=== PATIENT | female | born 1945 | race Caucasian/White ===

== ENCOUNTER 2018-09-24 12:15 | Inpatient (IN) | payer MEDICARE, SELFPAY ==
[2018-09-10 09:59] VITALS: BMI 28.5
[2018-09-24] VITALS (16 sets, daily range): BP systolic 91–147; BP diastolic 39–78; PULSE 45–62; RESP 10–18; TEMP 35.6–36.6; O2SAT 92–96; BMI 28.5
[2018-09-24] MEDS: LACTATED RINGERS 1,000 ML 42 ML IV (13:13)
[2018-09-24] MEDS: PREGABALIN 75 MG CAPSULE PO (13:16)
[2018-09-24] MEDS: ACETAMINOPHEN 325 MG TABLET 975 MG PO (13:16)
--- NOTE | 2018-09-24 13:17 | PM.PREOP ---
Pre-operative Note Interval Note History & Physical reviewed/Exam performed by Physician: Yes Changes to H&P: No
[2018-09-24] MEDS: CEFAZOLIN 1 GM VIAL IV (13:35)
--- NOTE | 2018-09-24 14:16 | SUR.OPER ---
Left Lateral on padded OR bed. Gel axillary roll. Arms secured on padded armboard with pillow supporting top arm. Padded hip positioner braces x4 - anterior and posterior chest and pelvis. Additional gel pad used anterior pelvis. Gel pad under bottom leg from knee to foot and secured with tape over sheet.
--- NOTE | 2018-09-24 14:19 | SUR.OPER ---
Raised, reddened, nickel sized bump on right lower buttock noted during positioning. Pamela Moore PA-C and Dr. Ragini anders.
[2018-09-24] MEDS: BUPIVACAINE 0.25% W/ EPI VIAL 50 ML INJ (14:25)
[2018-09-24] MEDS: TRANEXAMIC ACID 1,000 MG VIAL 1000 MG INJ ×2 (14:27→14:52)
--- NOTE | 2018-09-24 14:30 | DI.RAD.S_ITS ---
PROCEDURE: XR PELVIS 1-2V INDICATIONS: prosthesis placement TECHNIQUE: 1 view of the lower pelvis acquired. COMPARISON: None. FINDINGS: Bones: Patient is status post right hip arthroplasty, with hardware components in expected positions. The hip joint appears congruent. The visualized bony structures appear intact. Soft tissues: Overlying postoperative changes are noted. No suspicious soft tissue densities. IMPRESSION: Post right total hip arthroplasty with anatomic right hip alignment. Dictated by: Jame Garcia M.D. on 09/24/2018 at 16:18 Approved by: Jame Garcia M.D. on 09/24/2018 at 16:18
--- NOTE | 2018-09-24 15:24 | SUR.PHASEI ---
Sat probe to right hand is about 2% higher than to left. Not using CPAP. No shivering seen.
--- NOTE | 2018-09-24 15:25 | PM.OP.1 ---
Operative Date/Time/Diagnoses Date of procedure: 09/24/18 Time of procedure: 15:25 Pre-op diagnosis: Right hip degenerative joint disease Post-op diagnosis: same Procedure & Clinicians Procedure: Right total hip arthroplasty (CPT code 37138 with assistant bookkeeper) Same procedure as scheduled: Yes Indications: Patient is an 72-year-old female with severe right hip DJD. The patient has pain with activities and at rest, limited ambulation and activity tolerance, difficulties with ADLs, and failure of conservative treatment. We have discussed the nature of condition, treatment options, risks and benefits, and patient elects to proceed with total hip arthroplasty and gives informed consent. Surgeon: Amanuel Eid Traffic Maintenance Supervisor: James Tesfaye Anesthesia Type: General and Spinal Operative Notes Closure Type: primary Specimen(s): none sent Prosthetic devices, grafts, tissues, transplants, or devices: Acetabulum: Mulligan [employer]hew R3 acetabular component size 50 mm Femoral component: Mulligan [employer] Nephew Anthology stem size 6 with standard offset Femoral head: 32 mm + 0 Oxinium Estimated Blood Loss (mL): 100 Blood products transfused: none Procedure in detail: After satisfaction induction of anesthetic, and administration of IV antibiotics, the patient was positioned in the lateral decubitus position with all bony prominences well padded and pelvic position secured using a hip pnp positioning device. Right hip and lower extremity prepped and draped in the usual sterile fashion, 1st dose of intravenous tranexamic acid was administered, then a longitudinal incision was created centered over the greater trochanter and carried sharply through the skin and subcutaneous tissues down to the fascia jose luis which was divided longitudinally and retracted with a Charnley retractor. External rotators visualize, cut, tagged, and retracted posteriorly, then the capsule was cut in a T-type fashion with the corners tagged and retracted. Hip was dislocated and femoral neck cut made according to preoperative templating. Acetabular retractors then placed, and the acetabular labrum and osteophytes were excised. The acetabulum was then sequentially reamed to 49 mm with an excellent circumferential ream and fit with the trial. The trial component was removed and a permanent size 50 mm Mulligan [employer] Nephew R3 acetabular component was selected, positioned, and impacted with satisfactory position and fixation achieved. Permanent liner was then inserted with the elevated lip directed posteriorly. Soft tissue then removed off the lateral femoral neck in the lateral neck was entered using a box osteotome. T-handled reamers placed down the canal followed by sequential broaching to 6 with the final broach left in place for trial reduction which demonstrated excellent leg length, range of motion, and stability characteristics with a 32 mm +0 trial ball. The trial and broach were removed, and a permanent size 6 Mulligan [employer] Nephew Anthology stem was selected and inserted with excellent position and fixation achieved. Another trial reduction yielded the above characteristics so the trial ball was exchanged for a permanent 32 mm +0 Oxinium ball. The hip was irrigated and reduced and excellent leg length range of motion and stability characteristics were achieved and maintained. Periarticular tissues were infiltrated with Marcaine. The hip was copiously irrigated, and the capsule repaired with #2 Ethibond, and the piriformis was repaired back to the greater trochanter with the same. Fascia jose luis closed with interrupted #1 Ethibond sutures, and the subcutaneous tissues were closed in 2 layers of 0 Vicryl and 2 0 Vicryl. Skin was closed with rakel and sterile dressings applied. Second dose of tranexamic acid was administered intravenously, and the anesthetic was terminated. Complications: none Condition: stable Disposition: PACU Plan for aftercare: Patient will be admitted to the acute care storm, and anticipate discharge on postop day 1 or 2 with follow-up in office in 10-14 days. Outpatient physical therapy will be arranged and patient will continue to observe posterior hip precautions. Patient will continue use of postoperative Lovenox for 10 days postop.
--- NOTE | 2018-09-24 15:28 | P.OP_ITS ---
Operative Date/Time/Diagnoses Date of procedure: 09/24/18 Time of procedure: 15:25 Pre-op diagnosis: Right hip degenerative joint disease Post-op diagnosis: same Procedure & Clinicians Procedure: Right total hip arthroplasty (CPT code 58367 with assistant paralegal) Same procedure as scheduled: Yes Indications: Patient is an 72-year-old female with severe right hip DJD. The patient has pain with activities and at rest, limited ambulation and activity tolerance, difficulties with ADLs, and failure of conservative treatment. We have discussed the nature of condition, treatment options, risks and benefits, and patient elects to proceed with total hip arthroplasty and gives informed consent. Surgeon: Amanuel Eid Emergency Dispatch Operator: James Tesfaye Anesthesia Type: General and Spinal Operative Notes Closure Type: primary Specimen(s): none sent Prosthetic devices, grafts, tissues, transplants, or devices: Acetabulum: Mulligan [employer] Nephew R3 acetabular component size 50 mm Femoral component: Mulligan [employer] Nephew Anthology stem size 6 with standard offset Femoral head: 32 mm + 0 Oxinium Estimated Blood Loss (mL): 100 Blood products transfused: none Procedure in detail: After satisfaction induction of anesthetic, and administration of IV antibiotics, the patient was positioned in the lateral decubitus position with all bony prominences well padded and pelvic position secured using a hip inbound call center representative positioning device. Right hip and lower extremity prepped and draped in the usual sterile fashion, 1st dose of intravenous tranexamic acid was administered, then a longitudinal incision was created centered over the greater trochanter and carried sharply through the skin and subcutaneous tissues down to the fascia jose luis which was divided longitudinally and retracted with a Charnley retractor. External rotators visualize, cut, tagged, and retracted posteriorly, then the capsule was cut in a T-type fashion with the corners tagged and retracted. Hip was dislocated and femoral neck cut made according to preoperative templating. Acetabular retractors then placed, a nd the acetabular labrum and osteophytes were excised. The acetabulum was then sequentially reamed to 49 mm with an excellent circumferential ream and fit with the trial. The trial component was removed and a permanent size 50 mm Mulligan and Nephew R3 acetabular component was selected, positioned, and impacted with satisfactory position and fixation achieved. Permanent liner was then inserted with the elevated lip directed posteriorly. Soft tissue then removed off the lateral femoral neck in the lateral neck was entered using a box osteotome. T- handled reamers placed down the canal followed by sequential broaching to 6 with the final broach left in place for trial reduction which demonstrated excellent leg length, range of motion, and stability characteristics with a 32 mm +0 trial ball. The trial and broach were removed, and a permanent size 6 Mulligan [employer] Nephew Anthology stem was selected and inserted with excellent position and fixation achieved. Another trial reduction yielded the above characteristics so the trial ball was exchanged for a permanent 32 mm +0 Oxinium ball. The hip was irrigated and reduced and excellent leg length range of motion and stability characteristics were achieved and maintained. Periarticular tissues were infiltrated with Marcaine. The hip was copiously irrigated, and the capsule repaired with #2 Ethibond, and the piriformis was repaired back to the greater trochanter with the same. Fascia jose luis closed with interrupted #1 Ethibond sutures, and the subcutaneous tissues were closed in 2 layers of 0 Vicryl and 2 0 Vicryl. Skin was closed with rakel and sterile dressings applied. Second dose of tranexamic acid was administered intravenously, and the anesthetic was terminated. Complications: none Condition: stable Disposition: PACU Plan for aftercare: Patient will be admitted to the acute care storm, and anticipate discharge on postop day 1 or 2 with follow-up in office in 10-14 days. Outpatient physical therapy will be arranged and patient will continue to observe posterior hip precautions. Patient will continue use of postoperative Lovenox for 10 days postop.
--- NOTE | 2018-09-24 17:35 | PT.IPTN ---
Current Diagnoses Unilateral primary osteoarthritis, right hip (09/24/18) Other cervical disc degeneration, unspecified cervical region (09/24/18) Radiculopathy, cervical region (09/24/18) Surgery Performed Operation Date: 09/24/18 14:30 Actual Procedures p Total Hip Arthroplasty(Right) - Amanuel Eid MD Physical Therapy Treatment Note M3 PT-IP Subjective Start: 09/24/18 17:33 Freq: NEEDED Status: Active Protocol: Document 09/24/18 17:33 (Rec: 09/24/18 17:35 [id number]) Subjective Physical Therapy Visit Type Type Administrative Note Visit Start Time 17:30 Notes Pt states she is not ready for PT due to numbness on BLE. Will attempt PT eval again tomorrow am.
[2018-09-24] MEDS: LACTATED RINGERS 1,000 ML 125 ML IV (18:20)
[2018-09-24] MEDS: NICOTINE 21 MG PATCH TOP (18:20)
[2018-09-24] MEDS: HYDROMORPHONE 2 MG TABLET PO ×2 (19:25→22:15)
[2018-09-24] MEDS: hydrOXYzine pamoate 25 MG CAPSULE PO (19:59)
[2018-09-24] MEDS: HYDROCODONE/ACET 5/325 TABLET 1 TAB PO (19:59)
[2018-09-24] MEDS: HYDROMORPHONE 0.5 MG INJ IV (21:15)
[2018-09-24] MEDS: clonazePAM 0.5 MG TABLET 1 MG PO (22:15)
[2018-09-24] MEDS: METFORMIN XR 500 MG TABLET PO (22:19)
[2018-09-24] MEDS: LOSARTAN 50 MG TABLET PO (22:20)
[2018-09-24] MEDS: ROSUVASTATIN 10 MG TABLET 40 MG PO (22:20)
[2018-09-24] MEDS: OXYBUTYNIN 5 MG ER TAB 10 MG PO (22:21)
[2018-09-24] MEDS: ATENOLOL 50 MG TABLET PO (22:21)
[2018-09-24] MEDS: ACETAMINOPHEN 325 MG TABLET 650 MG PO (22:22)
[2018-09-24] MEDS: OLANZapine 2.5 MG TABLET PO (22:22)
[2018-09-24] MEDS: CEFAZOLIN 2 GM/100 ML FROZ.PIGGY IV (22:26)
[2018-09-25] VITALS (16 sets, daily range): BP systolic 124–145; BP diastolic 57–72; PULSE 55–65; RESP 16–20; TEMP 36.5–37.1; O2SAT 86–96
[2018-09-25] MEDS: HYDROMORPHONE 0.5 MG INJ IV ×4 (00:25→23:57)
[2018-09-25] MEDS: LACTATED RINGERS 1,000 ML 125 ML IV (02:13)
[2018-09-25] MEDS: HYDROMORPHONE 2 MG TABLET PO ×4 (02:13→17:32)
--- NOTE | 2018-09-25 03:12 | PC.NURSE ---
Visual Communications Instructor Note: 0005: Awake, resting in bed. Pt denies numbness to lower extremities. Vital signs stable. IV in place in rt wrist, with LR infusing at 125cc/hr. Assisted to turn and reposition. Pt states she needs to urinate and frequently has stress incontinence. Pt voided in brief: ronaldo care given and clean brief put on. SCDs on. Fresh ice bag to rt hip. Bulky dressing to rt hip is cdi. 0025: Pt states her pain level is 8/10. Medicated with Dilaudid 0.5mg IV.
[2018-09-25 05:56] LABS: Hematocrit 38.4 % (36-46); Hemoglobin 13.2 g/dL (12.0-16.0)
[2018-09-25] MEDS: CEFAZOLIN 2 GM/100 ML FROZ.PIGGY IV (06:49)
[2018-09-25] MEDS: ACETAMINOPHEN 325 MG TABLET 650 MG PO ×3 (08:03→20:45)
[2018-09-25] MEDS: AMIODARONE 100 MG TABLET PO (08:07)
[2018-09-25] MEDS: ATENOLOL 50 MG TABLET PO ×2 (08:09→20:46)
[2018-09-25] MEDS: METFORMIN XR 500 MG TABLET PO ×2 (08:12→20:47)
[2018-09-25] MEDS: OXYBUTYNIN 5 MG ER TAB PO (08:12)
[2018-09-25] MEDS: LOSARTAN 50 MG TABLET PO ×2 (08:12→20:47)
[2018-09-25] MEDS: NICOTINE 21 MG PATCH TOP (08:12)
[2018-09-25] MEDS: SERTRALINE 50 MG TABLET PO (08:13)
--- NOTE | 2018-09-25 09:00 | PM.PNPO.1 ---
Subjective Date Patient Seen: 09/25/18 Interval history: Patient is seen bedside status post right NICK on 09/24/[address] Eid. Patient is in pain at this time, but denies any CP, SOB, cough, calf pain, and numbness/tingling. She does not have anyone at home to stay with her, so would like to go to a rehab facility upon discharge. Based on her Swift[place] score of 17, I believe this is reasonable. Exam Vital Signs (past 8 hours): - 09/25/18 01:23 09/25/18 04:29 Temperature 98.1 F 97.7 F Pulse Rate 65 62 Respiratory Rate 19 16 Blood Pressure 140/72 145/69 H Pulse Oximetry 93 93 Oxygen Delivery Method Nasal Cannula Oxygen Flow Rate 2 Narrative Exam Narrative: Well-developed well-nourished mild distress alert and oriented x3. Dressing on right hip is clean dry and intact with no signs of drainage. Full range of motion of bilateral ankles 2+ pulses and cap refill less than 2 sec. Calves are soft and compressible. Objective Labs Result Diagrams: 09/25/18 05:08 Labs: Laboratory Results - last 24 hr 09/25/18 05:08 Hgb 13.2 Hct 38.4 Assessment & Plan Post-op Postoperative Procedures Operation Date: 09/24/18 14:30 Actual Procedures Side Surgeon p Total Hip Arthroplasty Right Amanuel Eid MD 1. POD #1 s/p above procedure-PT, lovenox for DVT prophylaxis, and pain control. Discharge to SNF when medically ready. Quality VTE Deep Vein Thrombosis/Pulmonary Embolism Present on Admission: No
--- NOTE | 2018-09-25 09:13 | PC.NURSE ---
Patient was incontinent, changed patient and sheets, new brief, cleaned up and repositioned.
--- NOTE | 2018-09-25 09:50 | PT.IIE ---
Current Diagnoses Unilateral primary osteoarthritis, right hip (09/24/18) Other cervical disc degeneration, unspecified cervical region (09/24/18) Radiculopathy, cervical region (09/24/18) Surgery Performed Operation Date: 09/24/18 14:30 Actual Procedures p Total Hip Arthroplasty(Right) - Amanuel Eid MD Surgical History (Last Updated 09/10/18 @ 11:57 by Maxine Dey RN) History of lumpectomy of left breast (Acute) Hx of appendectomy (Acute) Hx of dilation and curettage (Acute) Hx of heart artery stent (Acute) Hx of ovarian cystectomy (Acute) Hx of shoulder surgery (Acute) Hx of tonsillectomy (Acute) S/P cervical spinal fusion (Acute 01/26/17) Status post bilateral LASIK surgery (Acute) Status post cataract extraction of both eyes with insertion of intraocular lens (Acute) Medical History (Last Updated 09/10/18 @ 11:57 by Maxine Dey RN) BCC (basal cell carcinoma) (Acute) Breast cancer, left (Acute) CAD (coronary artery disease) (Acute) Current every day smoker (Acute) Diastolic heart failure (Acute) Diverticulosis (Acute) Genital herpes (Acute) Incontinence (Acute) Migraines (Acute) Myocardial infarct (Acute ~2002) LINNEA on CPAP (Acute) Paroxysmal A-fib (Acute) Skin cancer (Acute) Type 2 diabetes mellitus (Acute) Physical Therapy Inpatient Evaluation/Re-Eval M1 PT/OT-IP Prior Functional Status Start: 09/24/18 17:33 Freq: NEEDED Status: Active Protocol: Document 09/25/18 09:50 AB (Rec: 09/25/18 12:12 AB [id number]) Medical Review Prior Functional Status Medical History Reviewed Yes Communication able to make needs known Mobility and Gait pt stated that she is modified independent with all mobilities and ambulation without AD indoors but tends to furniture walk and uses 2 walking sticks for outdoor mobility Social History Household Members none Living Arrangements House Number of Floors (Floors) One Floor Number of Stairs To Enter/Railing? 3 steps to enter with B rails; has 2 steps without rail down to living room area Home Environment High Toilet Tub/Shower Home Equipment Shower Seat without Backrest Hand Held Shower Grab Bars Near Toilet Grab Bars In Shower Employment Status Retired Additional Social History Comment has neighbors that checks on pt M2 PT-IP Current Condition Start: 09/24/18 17:33 Freq: NEEDED Status: Active Protocol: Document 09/25/18 09:50 AB (Rec: 09/25/18 12:12 AB [id number]) Physical Therapy Current Condition Current Condition Evaluation Date 09/25/18 Treatment Diagnosis s/p R NICK posterior approach; difficulty in walking Onset Date 09/24/18 Precautions Posterior Hip Precautions No Hip Flexion > 90 degrees No Hip Internal Rotation No Hip Adduction Weight Bearing Status Weight Bearing Status Weight Bear as Tolerated M3 PT-IP Subjective Start: 09/24/18 17:33 Freq: NEEDED Status: Active Protocol: Document 09/25/18 09:50 AB (Rec: 09/25/18 12:12 AB [id number]) Subjective Physical Therapy Visit Type Type Initial Evaluation Visit Start Time 09:50 Visit Stop Time 10:53 Total Visit Minutes 63 Number of DRILLING ASSISTANT Visits 0 Physical Therapy Visit Comments Patient Comments pt stated that she cannot even roll in bed but agreed to get up with PT. Therapy Pain Assessment Pain When Pain Assessed At Rest Pain Present Pain Present Pain Reported Location Right Thigh Intensity 9 Scale Used Numeric (1 - 10) Pain Management Techniques Apply Cold Re-positioning Timing of Activity with Medications M4 PT-IP Mobility and Gait Start: 09/24/18 17:33 Freq: NEEDED Status: Active Protocol: Document 09/25/18 09:50 AB (Rec: 09/25/18 12:12 AB [id number]) PT-Bed Mobility Assessment Supine to Sit Supine to Sit Maximum Assistance 1 Person Assistance 2 Person Assistance PT-Transfer Assessment Sit to and From Stand Sit to and from Stand Moderate Assistance Maximum Assistance 1 Person Assistance Use of Upper Extremities Equipment Transfer Assistive Device Gait Belt Front Wheeled Walker Orthotic/Prosthetic Devices or Brace: No Transfers Transfer Destination Chair Transfer Technique Pt ambulated to the chair using FWW Transfer Ability Level of Assist Moderate Assistance 1 Person Assistance Use of Upper Extremities Comments Mobility Comments pt required increase time to complete tasks. pt completed bed mobility supine to sit max A x 1-2 and max cues. required 2 attempts to complete task. pt was able to sit on EOB SBA. pt completed sit to stand mod to max A and max cues to maintain R hip precautions. pt initially required max A to maintain standing balance/tolerance using FWW for support. cued to activate R quads and weight bear on RLE. pt was able to ambulate using FWW towards the chair ~ 12 ft requiring mod A and max cues. pt stated that she needs to be changed. pt completed sit to stand from chair max A and max cues and was able to maintain standing using FWW for support min A and cues while student nurse assist with hygiene care and brief management. pt agreed to sit up on chair. ice pack provided. call light and table placed within reach. Gait Assessment Gait Gait Assistance Required: Moderate Assistance 1 Person Assist Distance (Feet) 12 Able to Maintain Weight Bearing Status Yes During Gait Assistive Devices Assistive Device Gait Belt Front Wheeled Walker Gait Deviations General Gait Pattern Antalgic Decreased Stride Length Decreased Feet Clearance Step-to Gait Factors Limiting Gait Function Factors Limiting Gait Function Decreased Activity Tolerance Decreased Strength Difficulty Following Directions Limited Range of Motion Pain Poor Balance Poor Safety Awareness PT-Balance Assessment Sitting Balance and Reactions Static Sitting Balance Ability Good Dynamic Sitting Balance Ability Fair Standing Balance and Reactions Static Standing Balance Ability Fair Dynamic Standing Balance Ability Poor Device Used FWW M5 PT-IP Objective Assessments Start: 09/24/18 17:33 Freq: NEEDED Status: Active Protocol: Document 09/25/18 09:50 AB (Rec: 09/25/18 12:12 AB [id number]) Orientation Orientation/Cognition Level of Alertness Alert Orientation Name Age Birthday Place Situation Language Function Ability No Deficits Noted Safety Awareness Decreased Safety Awareness Gross Range of Motion Lower Extremity ROM Assessment Right Impaired Impairments R hip decreased ROM due to pain limiting movement Strength Lower Extremity Strength Assessment Right Impaired Knee 3-/5 Coordination Assessment Gross Coordination Gross Coordination WNL Sensation Assessment Sensation Gross Sensation WNL Muscle Tone Muscle Tone WNL Yes M6 PT-IP Treatment Start: 09/24/18 17:33 Freq: NEEDED Status: Active Protocol: Document 09/25/18 09:50 AB (Rec: 09/25/18 12:12 AB [id number]) Physical Therapy Treatment Education Education Provided Precautions Weight Bearing Status Post-Op Packet Safety M7 PT-IP Assessment and Plan Start: 09/24/18 17:33 Freq: NEEDED Status: Active Protocol: Document 09/25/18 09:50 AB (Rec: 09/25/18 12:12 AB [id number]) PT Summary Assessment and Plan Potential Rehabilitation Potential Fair Status of Condition at Evaluation Evolving Summary Impairments Pain ROM Strength Balance Coordination Sensation Tone Cognition Bed Mobility Transfers Gait Activity Tolerance Assessment Summary pt requiring mod A to max A with mobility and will require SNF rehab to improve strength and mobility. Goals Bed Mobility Goal Standby Assistance Transfer Goal Contact Guard Assistance Front Wheeled Walker Gait Goal Contact Guard Assistance Front Wheel Walker Gait Distance 100 Other Goals up/down 3 steps with bilateral rails CGA up/down 2 steps using FWW CGA Days to Meet Goals 5 Frequency of Treatment Frequency Of Treatment Twice a Day Treatment Plan Physical Therapy Treatment Plan Bed Mobility Training Transfer Training Gait Training Therapeutic Exercise Balance Retraining Post Op Education Discharge Planning Hot or Cold Pack Neuromuscular Re-ed Coordination Retraining Manual Therapy Other Recommendations and Next Treatment ambulation Focus Recommendations To Nursing Amount of Assist Needed 2 Person Assist Discharge Recommendations PT Discharge Recommendations SNF Rehab
--- NOTE | 2018-09-25 12:40 | CM.DANOTE ---
Addendum entered by Lourdes Silva LPN 09/25/18 13:20: JADA/Luz has called back and confirms acceptance of pt if she is ready 08/27 or >. Attempted to update pt but she does not rouse from sleep. Her room white board is updated. Original Note: Discharge Planning/Care Management DCP: assessment: case received, EMR reviewed and met with pt. Introduced self and role. Pt is a 72 year old female who admitted yesterday for a planned R NICK: posterior precautions. Surgeon: Dr. Eid Payer: Medicare and AARP INPT admission status: confirmed by UR RN Bry. Ortho PA Ayleen stated in Team Rounds that pt's preop plan included snf rehab. Discussed same with pt. SNF choice list given: decision: [facility]. Referral: efx and called to Cb. She will review and get back to the DCP team at the 1358 line. Pt is very groggy to day so conversation is limited but she is aware that the referral is in. Advanced directive, confirm from FAMILY Start: 09/24/18 16:48 Freq: Q24H Status: Active Protocol: Document 09/24/18 16:48 LDV (Rec: 09/24/18 19:17 LDV [id number]) Advance Directive, confirm on record Time 19:17 Person contacted patient Copy received No CM Discharge Assessment Start: 09/25/18 12:39 Freq: Status: Active Protocol: Document 09/25/18 12:39 ITV (Rec: 09/25/18 12:40 ITV [id number]) Discharge Planning Assessment Advance Directives? Yes: Currently working on Advance Directives on File No History Provided By Patient Prior Living Arrangements House Household Members none Whiteboard Updated in Patient Room with Yes name and ext. # of Manager Private Review Status In Process Next Review Type Continued Stay Review Pre-Anesthesia Assessment Start: 09/10/18 09:58 Freq: Status: Active Protocol: Document 09/10/18 09:59 CAB (Rec: 09/10/18 11:00 CAB [id number]) Pre-Anesthesia Assessment PAC Comment Cardiology visit/clearance, testing, and Anesthesia Review scanned to chart Patient Information Reviewed Via Phone Assessment Assessment Completed With Patient Diagnostic Results BMP/CMP CBC EKG Primary Care Provider Brett Ram Seen Specialist in Last 12 Months Yes Specialist Seen Specialty Food Products Supervisor Orthopedist Primary Language Spanish Lithographic Etcher Required No Height 160.02 cm Weight 73.028 kg Body Mass Index (BMI) 28.5 Hearing Ability Normal Visual Assist Glasses Dentition Type Teeth, Natural Present Barriers to Learning None Other Aids No Hx Anesthesia Reactions No Hx Family Anesthesia Reaction No Hx Malignant Hyperthermia No Hx Blood Transfusions No Anesthesia Review Requested No: Anesthesia review prior, ok to proceed, scanned to record Sustainability Officer No alcohol intake current alcohol intake frequency 0-2 drinks per day Smoking Status Current every day smoker Tobacco type cigarettes Smoking packs per day 0.75 Substance Use Type does not use Pain Present Pain Reported Musculoskeletal Symptoms Abnormal Gait Back Pain Difficulty Walking Joint Pain Numbness History of Falling (Recent or History of Yes ) Patient is completely paralyzed or No completely immobile Mental Status Oriented to own ability Comment Walking sticks for outside ambulating Is patient on oxygen? Yes Does patient have FARIAS/SOB No Hx Sleep Apnea Yes CPAP/BIPAP use prescribed and used routinely Will Bring CPAP/BIPAP DOS Yes Comment 2LO2 at HS and intermittently during the day Currently Taking a Beta Elo Yes: Atenolol Can You Climb a Flight of Stairs Without Yes SOB Hx Chest Pain No Hx SOB No Hx Syncope or Dizziness No Anti-Coagulant Therapy Yes: Warfarin-Pt advised to hold 5 days prior per cardiology Has a Specialty Food Products Supervisor Yes: Camila Wei Cardiac Testing Yes: Heart cath 04/23/18, Stress ECHO 04/11/18 Hx Pacemaker/ICD No Pacemaker Rep Required? No Cardiac Clearance Received Yes Diet Type At Home Regular dysphagia No Bladder Pattern Incontinent Urgency Urinary Catheter Present No Hx Urinary Self Catheterization No Diabetes Yes: Pt does not check blood sugars at home HgbA1C 5.6 Patient No Lactating No Hx Drug Resistant Organism No Presence of External or Internal Medical No Devices Have you traveled outside the [facility] States in the last 30 days? Marital Status Lives With none Prior Living Arrangements House Number of Floors (Floors) One Floor Number of Stairs To Enter/Railing? 3 stairs, railings x 2 Support System Friend(s) Patient Discharge Plan Description Return Home Long-Term Facility/Rehab Comment Friend is planning to be w/pt @ night, but works during the day, pt alone Feels Safe in Current Environment Yes Been Physically Hurt or Threatened By a No Person in Current Environment Do you have thoughts of harming yourself None or others? Are you currently considering suicide? No Do you have a plan to hurt yourself or No Plan others? Do You Have Any Spiritual Beliefs That No May Affect Your HC Choices? Do You Have Any Cultural Practices That No May Affect Your HC Choices? Spiritual Referral None Comment Synagogue Who Can We Speak to About Patient's Care Family, friends Identifying Code for Release of Patient Declines to issue Information Health Care Proxy/Next of Kin Marina () Health Care Proxy or [phone] Emergency Contact Name Marina phillips) Emergency Contact or [phone] Advance Directives? Yes: Currently working on Advance Directives on File No Requested Patient Bring Advanced Yes Directives DOS Power of Director [employer] Yes Power of Director [employer] Name Marina phillips) Power of Director [employer] or [phone] PAC Instructions Bring CPAP/BIPAP Do not shave/clip surgical site Durable medical equipment Medications to take/avoid Nasal antibiotic No ETOH/petroleum product on skin DOS NPO Post-op transportation Pre-surgical wash Sturdy shoes/comfortable clothes Do not bring valuables and remove jewelry Document 09/25/18 08:37 KAI (Rec: 09/25/18 08:45 KAI [id number])
--- NOTE | 2018-09-25 14:38 | PT.IPTN ---
Current Diagnoses Unilateral primary osteoarthritis, right hip (09/24/18) Other cervical disc degeneration, unspecified cervical region (09/24/18) Radiculopathy, cervical region (09/24/18) Surgery Performed Operation Date: 09/24/18 14:30 Actual Procedures p Total Hip Arthroplasty(Right) - Amanuel Eid MD Physical Therapy Treatment Note M2 PT-IP Current Condition Start: 09/24/18 17:33 Freq: NEEDED Status: Active Protocol: Document 09/25/18 09:50 AB (Rec: 09/25/18 12:12 AB [id number]) Physical Therapy Current Condition Current Condition Evaluation Date 09/25/18 Treatment Diagnosis s/p R NICK posterior approach; difficulty in walking Onset Date 09/24/18 Precautions Posterior Hip Precautions No Hip Flexion > 90 degrees No Hip Internal Rotation No Hip Adduction Weight Bearing Status Weight Bearing Status Weight Bear as Tolerated M3 PT-IP Subjective Start: 09/24/18 17:33 Freq: NEEDED Status: Active Protocol: Document 09/25/18 14:38 AB (Rec: 09/25/18 15:43 AB [id number]) Subjective Physical Therapy Visit Type Type Treatment Note Visit Start Time 14:38 Visit Stop Time 15:05 Total Visit Minutes 27 Number of SENIOR TECHNICAL TRAINER Visits 0 Physical Therapy Visit Comments Patient Comments pt initially refusing but agreed after education. Therapy Pain Assessment Pain When Pain Assessed During Mobility Pain Present Pain Present Pain Reported Location Right Hip Intensity 4 Scale Used Numeric (1 - 10) Pain Management Techniques Apply Cold Re-positioning Timing of Activity with Medications M4 PT-IP Mobility and Gait Start: 09/24/18 17:33 Freq: NEEDED Status: Active Protocol: Document 09/25/18 14:38 AB (Rec: 09/25/18 15:43 AB [id number]) PT-Bed Mobility Assessment Supine to Sit Supine to Sit Maximum Assistance 1 Person Assistance 2 Person Assistance Scooting Scooting to Edge of Bed Maximum Assistance PT-Transfer Assessment Sit to and From Stand Sit to and from Stand Moderate Assistance 1 Person Assistance Equipment Transfer Assistive Device Gait Belt Front Wheeled Walker Transfers Transfer Destination Chair Transfer Technique pt ambulated to the chair using fWW Transfer Ability Level of Assist Moderate Assistance Comments Mobility Comments pt completed bed mobiltiy supine to sit max A x 1-2 and max cues. pt completed sit to stand from LI mod A and cues and was able to maintain standing using FWW for support min A while nurse assisted with hygiene care and brief management. pt ambulated towards the chair ~ 12 ft using FWW mod A and cues. positioned on chair. chair alarm on. call light and table postioned. Gait Assessment Gait Gait Assistance Required: Moderate Assistance Distance (Feet) 12 Able to Maintain Weight Bearing Status Yes During Gait Assistive Devices Assistive Device Gait Belt Front Wheeled Walker Orthotic/Prosthetic Devices or Brace: No Gait Deviations General Gait Pattern Antalgic Decreased Stride Length Decreased Feet Clearance Factors Limiting Gait Function Factors Limiting Gait Function Decreased Activity Tolerance Decreased Strength Difficulty Following Directions Limited Range of Motion Pain Poor Balance Poor Safety Awareness Comments Gait Comments pls refer to mobility section M5 PT-IP Objective Assessments Start: 09/24/18 17:33 Freq: NEEDED Status: Active Protocol: Document 09/25/18 09:50 AB (Rec: 09/25/18 12:12 AB [id number]) Orientation Orientation/Cognition Level of Alertness Alert Orientation Name Age Birthday Place Situation Language Function Ability No Deficits Noted Safety Awareness Decreased Safety Awareness Gross Range of Motion Lower Extremity ROM Assessment Right Impaired Impairments R hip decreased ROM due to pain limiting movement Strength Lower Extremity Strength Assessment Right Impaired Knee 3-/5 Coordination Assessment Gross Coordination Gross Coordination WNL Sensation Assessment Sensation Gross Sensation WNL Muscle Tone Muscle Tone WNL Yes M6 PT-IP Treatment Start: 09/24/18 17:33 Freq: NEEDED Status: Active Protocol: Document 09/25/18 14:38 AB (Rec: 09/25/18 15:43 AB [id number]) Physical Therapy Treatment Education Education Provided Precautions Safety M7 PT-IP Assessment and Plan Start: 09/24/18 17:33 Freq: NEEDED Status: Active Protocol: Document 09/25/18 14:38 AB (Rec: 09/25/18 15:43 AB [id number]) PT Summary Assessment and Plan Potential Rehabilitation Potential Fair Summary Impairments Pain ROM Strength Balance Coordination Sensation Tone Cognition Bed Mobility Transfers Gait Activity Tolerance Progress Towards Goals Slow Progress due to Pain Slow Progress due to Activity Tolerance Assessment Summary pt continues to require mod to max A x 1-2 for mobility and will benefit from SNF rehab to improve strength functional independence. Goals Bed Mobility Goal Standby Assistance Transfer Goal Contact Guard Assistance Front Wheeled Walker Gait Goal Contact Guard Assistance Front Wheel Walker Gait Distance 100 Other Goals up/down 3 steps with bilateral rails CGA up/down 2 steps using FWW CGA Days to Meet Goals 5 Frequency of Treatment Frequency Of Treatment Twice a Day Treatment Plan Physical Therapy Treatment Plan Bed Mobility Training Transfer Training Gait Training Therapeutic Exercise Balance Retraining Post Op Education Discharge Planning Hot or Cold Pack Neuromuscular Re-ed Coordination Retraining Manual Therapy Other Recommendations and Next Treatment ambulation Focus Recommendations To Nursing Amount of Assist Needed 2 Person Assist Discharge Recommendations PT Discharge Recommendations SNF Rehab
[2018-09-25] MEDS: OXYCODONE IR 5 MG TABLET 10 MG PO (18:29)
[2018-09-25] MEDS: SODIUM CHLORIDE 0.9% FLUSH 10 ML IV ×2 (20:42→23:57)
[2018-09-25] MEDS: OXYBUTYNIN 5 MG ER TAB 10 MG PO (20:45)
[2018-09-25] MEDS: AMLODIPINE 2.5 MG TABLET PO (20:46)
[2018-09-25] MEDS: ENOXAPARIN 40 MG/0.4 ML SYRINGE SUBCUT (20:46)
[2018-09-25] MEDS: clonazePAM 0.5 MG TABLET 1 MG PO (20:46)
[2018-09-25] MEDS: OLANZapine 2.5 MG TABLET PO (20:47)
[2018-09-25] MEDS: ROSUVASTATIN 10 MG TABLET 40 MG PO (20:47)
[2018-09-26] VITALS (12 sets, daily range): BP systolic 103–126; BP diastolic 51–66; PULSE 67–108; RESP 16–18; TEMP 36.6–37.2; O2SAT 89–95
[2018-09-26] MEDS: HYDROMORPHONE 0.5 MG INJ IV (04:40)
[2018-09-26] MEDS: SODIUM CHLORIDE 0.9% FLUSH 10 ML IV ×3 (04:40→21:33)
--- NOTE | 2018-09-26 05:06 | PC.NURSE ---
Pt. been refusing to reposition to her Rt, side. Inc. of urine noted sl. erythema to her buttocks. Reinforced to change position. Able to reposition her to her Rt. side. Pain level always rated @ 9/10, she requested IVP Dilaudid admin. slowly. Will cont. with POC & monitor.
--- NOTE | 2018-09-26 08:49 | PM.PNPO.1 ---
Subjective Date Patient Seen: 09/26/18 Time Patient Seen: 08:50 Interval history: Hospital day 3, postop day 2 following right total hip arthroplasty by Dr. Eid. Patient has remained stable postoperatively. As not progressed well with physical therapy. PT is recommending SNF. Patient does not have any help at home. Her Platt path score 17. Patient was started on Lovenox yesterday. She has not restarted her warfarin. Patient complains of pain in the 8 to 9/10 range to the nurses but then they go into the room and she is asleep. Exam Vital Signs (past 8 hours): - 09/26/18 05:03 09/26/18 08:00 Temperature 99 F 97.8 F Pulse Rate 87 93 H Respiratory Rate 16 18 Blood Pressure 126/64 107/58 L Pulse Oximetry 93 94 Oxygen Delivery Method Nasal Cannula Oxygen Flow Rate 2 Narrative Exam Narrative: Patient was asleep when I entered the room but did arouse with verbal command. Does appear drowsy. Legs. A bulky dressing to right hip is dry without drainage or inflammation. No calf pain or swelling. Pulses symmetrical. Objective Labs Result Diagrams: 09/25/18 05:08 Assessment & Plan Post-op Postoperative Procedures Operation Date: 09/24/18 14:30 Actual Procedures Side Surgeon p Total Hip Arthroplasty Right Amanuel Eid MD Plan: Will start warfarin 5 mg q.d. tonight. Apply CovRsite dressing to right hip. Work with PT. Anticipate discharge to SNF possibly tomorrow stable. Quality VTE Deep Vein Thrombosis/Pulmonary Embolism Present on Admission: No
[2018-09-26] MEDS: ACETAMINOPHEN 325 MG TABLET 650 MG PO ×3 (09:21→21:31)
[2018-09-26] MEDS: ATENOLOL 50 MG TABLET PO ×2 (09:22→21:32)
[2018-09-26] MEDS: AMIODARONE 100 MG TABLET PO (09:22)
[2018-09-26] MEDS: OXYBUTYNIN 5 MG ER TAB PO (09:22)
[2018-09-26] MEDS: METFORMIN XR 500 MG TABLET PO ×2 (09:22→21:33)
[2018-09-26] MEDS: SERTRALINE 50 MG TABLET PO (09:22)
[2018-09-26] MEDS: LOSARTAN 50 MG TABLET PO ×2 (09:22→21:31)
[2018-09-26] MEDS: NICOTINE 21 MG PATCH TOP (09:23)
[2018-09-26] MEDS: HYDROMORPHONE 2 MG TABLET 4 MG PO ×3 (09:30→18:02)
--- NOTE | 2018-09-26 10:15 | PT.IPTN ---
Current Diagnoses Unilateral primary osteoarthritis, right hip (09/24/18) Other cervical disc degeneration, unspecified cervical region (09/24/18) Radiculopathy, cervical region (09/24/18) Surgery Performed Operation Date: 09/24/18 14:30 Actual Procedures p Total Hip Arthroplasty(Right) - Amanuel Eid MD Physical Therapy Treatment Note M2 PT-IP Current Condition Start: 09/24/18 17:33 Freq: NEEDED Status: Active Protocol: Document 09/25/18 09:50 AB (Rec: 09/25/18 12:12 AB [id number]) Physical Therapy Current Condition Current Condition Evaluation Date 09/25/18 Treatment Diagnosis s/p R NICK posterior approach; difficulty in walking Onset Date 09/24/18 Precautions Posterior Hip Precautions No Hip Flexion > 90 degrees No Hip Internal Rotation No Hip Adduction Weight Bearing Status Weight Bearing Status Weight Bear as Tolerated M3 PT-IP Subjective Start: 09/24/18 17:33 Freq: NEEDED Status: Active Protocol: Document 09/26/18 10:15 AB (Rec: 09/26/18 11:19 AB [id number]) Subjective Physical Therapy Visit Type Type Treatment Note Visit Start Time 10:15 Visit Stop Time 10:50 Total Visit Minutes 35 Number of IPHONE DEVELOPER Visits 0 Physical Therapy Visit Comments Patient Comments pt agreeable to do PT Therapy Pain Assessment Pain When Pain Assessed At Rest Pain Present Pain Present Pain Reported Location Right Thigh Intensity 8 Scale Used Numeric (1 - 10) Pain Management Techniques Apply Cold Re-positioning Timing of Activity with Medications M4 PT-IP Mobility and Gait Start: 09/24/18 17:33 Freq: NEEDED Status: Active Protocol: Document 09/26/18 10:15 AB (Rec: 09/26/18 11:19 AB [id number]) PT-Bed Mobility Assessment Supine to Sit Supine to Sit Maximum Assistance 1 Person Assistance Sit to Supine Sit to Supine Moderate Assistance PT-Transfer Assessment Sit to and From Stand Sit to and from Stand Moderate Assistance Maximum Assistance 1 Person Assistance Use of Upper Extremities Equipment Transfer Assistive Device Gait Belt Front Wheeled Walker Orthotic/Prosthetic Devices or Brace: No Transfers Transfer Destination Bedside Commode Transfer Technique Stand Step Pivot Transfer Ability Level of Assist Minimal Assistance Moderate Assistance Comments Mobility Comments pt completed bed mobility supine to sit max A and max cues. pt requested to use the bedside commode and completed sit to stand mod A to max A and max cues and completed transfer using FWW mod A and cues. Pt required 2 attempts to complete sit to stand from bedside commode requiring max A and max cues. pt was able to maintain standing min A using FWW for support while NAC assisted with hygiene care and brief management. Gait Assessment Gait Gait Assistance Required: Minimum Assistance Moderate Assistance Distance (Feet) 15 Able to Maintain Weight Bearing Status Yes During Gait Assistive Devices Assistive Device Gait Belt Front Wheeled Walker Orthotic/Prosthetic Devices or Brace: No Gait Deviations General Gait Pattern Antalgic Decreased Stride Length Decreased Feet Clearance Factors Limiting Gait Function Factors Limiting Gait Function Decreased Activity Tolerance Decreased Strength Difficulty Following Directions Limited Range of Motion Pain Poor Balance Poor Safety Awareness Comments Gait Comments pt completed ambulated from bed to chair ~ 15 ft using FWW min to mod A and cues. pt presents with slow gerardo, antalgic gait with increase R knee valgus . M5 PT-IP Objective Assessments Start: 09/24/18 17:33 Freq: NEEDED Status: Active Protocol: Document 09/25/18 09:50 AB (Rec: 09/25/18 12:12 AB [id number]) Orientation Orientation/Cognition Level of Alertness Alert Orientation Name Age Birthday Place Situation Language Function Ability No Deficits Noted Safety Awareness Decreased Safety Awareness Gross Range of Motion Lower Extremity ROM Assessment Right Impaired Impairments R hip decreased ROM due to pain limiting movement Strength Lower Extremity Strength Assessment Right Impaired Knee 3-/5 Coordination Assessment Gross Coordination Gross Coordination WNL Sensation Assessment Sensation Gross Sensation WNL Muscle Tone Muscle Tone WNL Yes M6 PT-IP Treatment Start: 09/24/18 17:33 Freq: NEEDED Status: Active Protocol: Document 09/26/18 10:15 AB (Rec: 09/26/18 11:19 AB [id number]) Physical Therapy Treatment Exercises Exercises Heel Slides Education Education Provided Precautions Safety M7 PT-IP Assessment and Plan Start: 09/24/18 17:33 Freq: NEEDED Status: Active Protocol: Document 09/26/18 10:15 AB (Rec: 09/26/18 11:19 AB [id number]) PT Summary Assessment and Plan Potential Rehabilitation Potential Good Summary Impairments Pain ROM Strength Balance Coordination Sensation Tone Cognition Bed Mobility Transfers Gait Activity Tolerance Progress Towards Goals Slow Progress due to Pain Slow Progress due to Activity Tolerance Assessment Summary pt progressing slowly with mobility but continues to require mod to max A with mobility. pt will require SNF rehab to improve strength and functional independence. Goals Bed Mobility Goal Standby Assistance Transfer Goal Contact Guard Assistance Front Wheeled Walker Gait Goal Contact Guard Assistance Front Wheel Walker Gait Distance 100 Other Goals up/down 3 steps with bilateral rails CGA up/down 2 steps using FWW CGA Days to Meet Goals 5 Frequency of Treatment Frequency Of Treatment Twice a Day Treatment Plan Physical Therapy Treatment Plan Bed Mobility Training Transfer Training Gait Training Therapeutic Exercise Balance Retraining Post Op Education Discharge Planning Hot or Cold Pack Neuromuscular Re-ed Coordination Retraining Manual Therapy Other Recommendations and Next Treatment ambulation Focus Recommendations To Nursing Amount of Assist Needed 2 Person Assist Discharge Recommendations PT Discharge Recommendations SNF Rehab
--- NOTE | 2018-09-26 13:26 | PT.IPTN ---
Current Diagnoses Unilateral primary osteoarthritis, right hip (09/24/18) Other cervical disc degeneration, unspecified cervical region (09/24/18) Radiculopathy, cervical region (09/24/18) Surgery Performed Operation Date: 09/24/18 14:30 Actual Procedures p Total Hip Arthroplasty(Right) - Amanuel Eid MD Physical Therapy Treatment Note M2 PT-IP Current Condition Start: 09/24/18 17:33 Freq: NEEDED Status: Active Protocol: Document 09/25/18 09:50 AB (Rec: 09/25/18 12:12 AB [id number]) Physical Therapy Current Condition Current Condition Evaluation Date 09/25/18 Treatment Diagnosis s/p R NICK posterior approach; difficulty in walking Onset Date 09/24/18 Precautions Posterior Hip Precautions No Hip Flexion > 90 degrees No Hip Internal Rotation No Hip Adduction Weight Bearing Status Weight Bearing Status Weight Bear as Tolerated M3 PT-IP Subjective Start: 09/24/18 17:33 Freq: NEEDED Status: Active Protocol: Document 09/26/18 13:26 AB (Rec: 09/26/18 15:21 AB [id number]) Subjective Physical Therapy Visit Type Type Treatment Note Visit Start Time 13:26 Visit Stop Time 14:11 Total Visit Minutes 45 Number of ELEMENTARY SCHOOL TEACHER Visits 0 Physical Therapy Visit Comments Patient Comments pt agreeable to do PT Therapy Pain Assessment Pain When Pain Assessed During Weight Bearing Pain Present Pain Present Pain Reported Location Right Thigh Intensity 8 Pain Management Techniques Apply Cold Re-positioning Timing of Activity with Medications M4 PT-IP Mobility and Gait Start: 09/24/18 17:33 Freq: NEEDED Status: Active Protocol: Document 09/26/18 13:26 AB (Rec: 09/26/18 15:21 AB [id number]) PT-Bed Mobility Assessment Sit to Supine Sit to Supine Maximum Assistance 1 Person Assistance PT-Transfer Assessment Sit to and From Stand Sit to and from Stand Minimal Assistance Moderate Assistance Equipment Transfer Assistive Device Gait Belt Front Wheeled Walker Orthotic/Prosthetic Devices or Brace: No Gait Assessment Gait Gait Assistance Required: Minimum Assistance Moderate Assistance Distance (Feet) 40 Able to Maintain Weight Bearing Status Yes During Gait Assistive Devices Assistive Device Gait Belt Front Wheeled Walker Orthotic/Prosthetic Devices or Brace: No Gait Deviations General Gait Pattern Antalgic Decreased Stride Length Decreased Feet Clearance Step-to Gait Factors Limiting Gait Function Factors Limiting Gait Function Decreased Activity Tolerance Decreased Strength Limited Range of Motion Pain Poor Balance Poor Safety Awareness Comments Gait Comments pt completed ambulation using FWW 40+15ft using FWW min to mod A and cues for techniques and to maintain posterior hip precautions. pt presents with antalgic gait. Pt has increase R genu valgum with tendency for increase IR during sit to stand, scooting and ambulation. M5 PT-IP Objective Assessments Start: 09/24/18 17:33 Freq: NEEDED Status: Active Protocol: Document 09/25/18 09:50 AB (Rec: 09/25/18 12:12 AB [id number]) Orientation Orientation/Cognition Level of Alertness Alert Orientation Name Age Birthday Place Situation Language Function Ability No Deficits Noted Safety Awareness Decreased Safety Awareness Gross Range of Motion Lower Extremity ROM Assessment Right Impaired Impairments R hip decreased ROM due to pain limiting movement Strength Lower Extremity Strength Assessment Right Impaired Knee 3-/5 Coordination Assessment Gross Coordination Gross Coordination WNL Sensation Assessment Sensation Gross Sensation WNL Muscle Tone Muscle Tone WNL Yes M6 PT-IP Treatment Start: 09/24/18 17:33 Freq: NEEDED Status: Active Protocol: Document 09/26/18 13:26 AB (Rec: 09/26/18 15:21 AB [id number]) Physical Therapy Treatment Education Education Provided Precautions Weight Bearing Status Safety M7 PT-IP Assessment and Plan Start: 09/24/18 17:33 Freq: NEEDED Status: Active Protocol: Document 09/26/18 13:26 AB (Rec: 09/26/18 15:21 AB [id number]) PT Summary Assessment and Plan Potential Rehabilitation Potential Good Summary Impairments Pain ROM Strength Balance Coordination Sensation Tone Cognition Bed Mobility Transfers Gait Activity Tolerance Progress Towards Goals Slow Progress due to Pain Slow Progress due to Activity Tolerance Assessment Summary pt is slowly progressing with mobility and able to tolerate more ambulation this afternoon but continues to require mod to max A with mobility. pt will benefit from SNF rehab. Goals Bed Mobility Goal Standby Assistance Transfer Goal Contact Guard Assistance Front Wheeled Walker Gait Goal Contact Guard Assistance Front Wheel Walker Gait Distance 100 Other Goals up/down 3 steps with bilateral rails CGA up/down 2 steps using FWW CGA Days to Meet Goals 5 Frequency of Treatment Frequency Of Treatment Twice a Day Treatment Plan Physical Therapy Treatment Plan Bed Mobility Training Transfer Training Gait Training Therapeutic Exercise Balance Retraining Post Op Education Discharge Planning Hot or Cold Pack Neuromuscular Re-ed Coordination Retraining Manual Therapy Other Recommendations and Next Treatment ambulation Focus Recommendations To Nursing Amount of Assist Needed 1 Person Assist Discharge Recommendations PT Discharge Recommendations SNF Rehab
--- NOTE | 2018-09-26 14:25 | PC.NURSE ---
Pt up with P.T. - changed dsg to Coversite as ordered. Incision well approximated, without redness or drainage, and with rakel intact.
--- NOTE | 2018-09-26 15:53 | CM.DPC ---
DCP Cont: Attempted to speak to patient, was sleeping most of the day. Confirmed with syl at [facility] admissions that they can accept patient tomorrow, and she will qualify per Medicare guidelines. Will attempt to speak to patient again tomorrow. Have written name of this pillowcase maker on white board in her room. Went ahead and completed PASSR on patient based on information from her medical record. P: DCP to continue to assess. Patient may be discharged tomorrow to [facility]. Kerri Khan RN/Coin Machine Operator
[2018-09-26] MEDS: WARFARIN 5 MG TABLET PO (18:01)
[2018-09-26] MEDS: OXYBUTYNIN 5 MG ER TAB 10 MG PO (18:01)
[2018-09-26] MEDS: hydrOXYzine pamoate 25 MG CAPSULE PO (19:05)
[2018-09-26] MEDS: ROSUVASTATIN 10 MG TABLET 40 MG PO (21:31)
[2018-09-26] MEDS: AMLODIPINE 2.5 MG TABLET PO (21:32)
[2018-09-26] MEDS: ENOXAPARIN 40 MG/0.4 ML SYRINGE SUBCUT (21:32)
[2018-09-26] MEDS: OLANZapine 2.5 MG TABLET PO (21:33)
[2018-09-26] MEDS: clonazePAM 0.5 MG TABLET 1 MG PO (21:36)
[2018-09-27 00:08] VITALS: BP 93/48; PULSE 62; RESP 15; TEMP 36.6; O2SAT 90
[2018-09-27 03:14] VITALS: BP 105/49; RESP 16; TEMP 36.8; O2SAT 95
[2018-09-27] MEDS: HYDROMORPHONE 2 MG TABLET 4 MG PO (06:30)
--- NOTE | 2018-09-27 07:29 | PM.DS.1 ---
History of Present Illness Date Patient Seen: 09/27/18 Chief complaint: [id number] Narrative: Patient seen bedside s/p r. NICK by Dr. Eid on 09/24/18. Patient is POD #3. She is doing well, her pain is better controlled and she denies SOB, CP, calf pain. She has been following her posterior hip precautions. She was recommended for d/c to a SNF and will be discharged to [facility] today. Discharge Providers Date of admission: 09/24/18 12:15 Primary care physician: Brett Ram MD Consults: 09/24/18 15:54 Consult to Discharge Planning Routine Comment: Consult to Physical Therapy Evaluate & Treat Comment: Physician Instructions: post op NICK protocol Consult to Respiratory Therapy Evaluate & Treat Comment: Physician Instructions: Evaluate and treat Discharge provider: Hannah Dominguez PA-C Discharge Date: 09/27/18 Summary Discharge Diagnosis: Right hip osteoarthritis Hospital Course: Patient was admitted to the hospital status post right posterior total hip arthroplasty on 09/25/[address] Eid. Patient tolerated the procedure well with no major complications. She was transitioned to the acute care floor where she was placed on the standard replacement pathway and protocol. She was seen by Physical therapy who recommended that she be discharged to a subacute rehab facility. The patient was stable and ready for discharge on 09/27/2018. Patient was on warfarin preoperatively and will continue this. She should be bridged with Lovenox for the next few days. Status at Discharge Cognitive/behavioral status at discharge: Alert & oriented x3 Functional status at discharge: uses cane/walker Overall status at discharge: patient is progressing back to baseline Time Spent with Patient Less than 30 minutes Exam Vital Signs (past 8 hours): - 09/27/18 00:08 09/27/18 03:14 Temperature 97.8 F 98.3 F Pulse Rate 62 Respiratory Rate 15 16 Blood Pressure 93/48 L 105/49 L Pulse Oximetry 90 L 95 Oxygen Delivery Method Room Air Oxygen Flow Rate 2 Narrative Exam Narrative: Well-developed well-nourished no acute distress. Alert and oriented x3. Dressing on right hip is clean dry and intact with no signs of drainage. Minimal erythema and generalized swelling around the joint. She has full range of motion of the knee and ankle and a soft incompressible calf. She neurovascularly intact in the right lower extremity. Objective Labs Result Diagrams: 09/25/18 05:08 Discharge Plan Discharge Plan Patient Disposition: SNF Under care of provider: facility provider I certify the postop hospital shelter care is medically necessary on a continuing basis for any conditions for which he/ she received care during this hospitalization.: Yes The receiving facility has agreed to accept transfer and provide medical treatment.: Yes Discharge Med Rec/Prescriptions Prescriptions: New warfarin 2.5 mg tablet See Rx Instructions .ROUTE .COMPLEX Qty: 30 RF: 0 enoxaparin [Lovenox] 40 mg/0.4 mL Syringe 40 mg subcut BEDTIME 5 Days Qty: 200 RF: 0 oxycodone 5 mg tablet 5 mg PO Q4-6H PRN (Reason: pain) Qty: 10 RF: 0 Continued losartan 50 MG tablet 50 mg PO BID Qty: 0 RF: 0 atenolol 50 MG tablet 50 mg PO BID Qty: 0 RF: 0 rosuvastatin [Crestor] 40 MG tablet 40 mg PO HS Qty: 0 RF: 0 amlodipine [Norvasc] 2.5 MG tablet 2.5 mg PO HS Qty: 0 RF: 0 amiodarone 200 MG tablet 100 mg PO QAM Qty: 0 RF: 0 clonazepam 1 MG tablet 1 mg PO HS Qty: 0 RF: 0 olanzapine [Zyprexa] 2.5 MG tablet 2.5 mg PO HS Qty: 0 RF: 0 sertraline [Zoloft] 50 MG tablet 50 mg PO QDAY Qty: 0 RF: 0 metformin [Glucophage XR] 500 MG tablet extended release 24 hr 500 mg PO BID Qty: 0 RF: 0 oxybutynin chloride [Ditropan XL] 5 MG tablet extended release 24hr 15 mg PO SEEINSTR Qty: 0 RF: 0 acyclovir 400 MG tablet 400 mg PO 5XD PRN (Reason: Breakouts) Qty: 0 RF: 0 acetaminophen 500 MG tablet 2 tab PO TID Qty: 0 RF: 0 Oxygen for Home Use (Oxygen: Oxygen for Home Use) 1 l Intranasal DIRECTED RF: 0 Discontinued aspirin 81 MG tablet,delayed release (DR/EC) 81 mg PO QPM Qty: 0 RF: 0 warfarin [Coumadin] 5 MG tablet 5 mg PO SEEINSTR Qty: 0 RF: 0 hydrocodone-acetaminophen 5 MG/325 MG tablet 1 - 2 tab PO Q4HP PRN (Reason: Pain) RF: 0 Follow up/Referrals: Brett Ram MD [Primary Care Provider] - Provider Discharge Instructions Diet: Diet as Tolerated Activity: Weightbearing as tolerated, follow posterior hip precautions Cold/Heat Therapy: Apply ice 20 minutes at a time to surgical site at least hourly while awake. Skin/Wound/Dressing Care Report to your healthcare provider any signs of infection, such as:: chills, fever, night sweats, increased pain, unusual drainage and unusual redness Dressing: Keep dressing clean, dry, and intact. Special Rehabilitation Services Reason for rehabilitation: Post-operative therapy Rehab type: Physical therapy and Occupational therapy Restrictions to mobility: Follow posterior hip precautions Visit Report/Discharge Packet Instructions: DI for Hip Replacement Discharge Data Primary Care Provider: Brett Ram Attending Provider: Amanuel Eid Admit Date/Time: 09/24/18 12:15 Discharges patient from system. Discharge Date/Time: 09/27/18 13:57 Quality VTE Deep Vein Thrombosis/Pulmonary Embolism Present on Admission: No
[2018-09-27 08:00] VITALS: BP 116/52; PULSE 65; RESP 16; TEMP 36.7; O2SAT 89
[2018-09-27] MEDS: AMIODARONE 100 MG TABLET PO (08:29)
[2018-09-27] MEDS: METFORMIN XR 500 MG TABLET PO (08:30)
[2018-09-27] MEDS: ACETAMINOPHEN 325 MG TABLET 650 MG PO (08:30)
[2018-09-27] MEDS: SERTRALINE 50 MG TABLET PO (08:30)
[2018-09-27] MEDS: OXYBUTYNIN 5 MG ER TAB PO (08:30)
[2018-09-27] MEDS: LOSARTAN 50 MG TABLET PO (08:31)
[2018-09-27] MEDS: NICOTINE 21 MG PATCH TOP (08:32)
[2018-09-27] MEDS: ATENOLOL 50 MG TABLET PO (08:33)
[2018-09-27 09:57] VITALS: O2SAT 94
[2018-09-27] MEDS: BISACODYL 5 MG TABLET PO (10:47)
--- NOTE | 2018-09-27 10:48 | CM.DPC ---
DCP Cont: Patient has discharge orders, had spoken to Hannah MARTINEZ, who stated that she had written orders. Will be going to [facility]. Went ahead and updated her nurse, Amina, so she is aware. Faxed over signed med orders, discharge summary, and PASSR, to [facility]. Spoke to Syl in admissions at [facility]. Stated that she would call back with transportation time. Updated patient, so she is aware. Rich back from syl at [facility]. She stated that she reached transport company, and they will pick her up at approximately 1:30. Updated nurse, Amina, and white board as well. Kerri Khan, RN/Sanitation Worker Hosing [employer]inery
--- NOTE | 2018-09-27 10:59 | PT.IPTN ---
Current Diagnoses Unilateral primary osteoarthritis, right hip (09/24/18) Other cervical disc degeneration, unspecified cervical region (09/24/18) Radiculopathy, cervical region (09/24/18) Surgery Performed Operation Date: 09/24/18 14:30 Actual Procedures p Total Hip Arthroplasty(Right) - Amanuel Eid MD Physical Therapy Treatment Note M2 PT-IP Current Condition Start: 09/24/18 17:33 Freq: NEEDED Status: Active Protocol: Document 09/25/18 09:50 AB (Rec: 09/25/18 12:12 AB [id number]) Physical Therapy Current Condition Current Condition Evaluation Date 09/25/18 Treatment Diagnosis s/p R NICK posterior approach; difficulty in walking Onset Date 09/24/18 Precautions Posterior Hip Precautions No Hip Flexion > 90 degrees No Hip Internal Rotation No Hip Adduction Weight Bearing Status Weight Bearing Status Weight Bear as Tolerated M3 PT-IP Subjective Start: 09/24/18 17:33 Freq: NEEDED Status: Active Protocol: Document 09/27/18 10:59 AB (Rec: 09/27/18 11:42 AB [id number]) Subjective Physical Therapy Visit Type Type Treatment Note Visit Start Time 10:59 Visit Stop Time 11:21 Total Visit Minutes 22 Number of MOLD TECHNICIAN Visits 0 Physical Therapy Visit Comments Patient Comments pt agreeable to get up Therapy Pain Assessment Pain When Pain Assessed At Rest Pain Present Pain Present Pain Reported Location Right Hip Intensity 7 Scale Used Numeric (1 - 10) Pain Management Techniques Apply Cold Re-positioning Timing of Activity with Medications M4 PT-IP Mobility and Gait Start: 09/24/18 17:33 Freq: NEEDED Status: Active Protocol: Document 09/27/18 10:59 AB (Rec: 09/27/18 11:42 AB [id number]) PT-Bed Mobility Assessment Supine to Sit Supine to Sit Maximum Assistance 1 Person Assistance PT-Transfer Assessment Sit to and From Stand Sit to and from Stand Moderate Assistance Equipment Transfer Assistive Device Gait Belt Front Wheeled Walker Orthotic/Prosthetic Devices or Brace: No Comments Mobility Comments pt completed sit to stand from EOB requiriing mod A andn cues. pt requires assist to keep R LE from internally rotating during sit to stand. Gait Assessment Gait Gait Assistance Required: Contact Guard Assist Minimum Assistance Distance (Feet) 50 Able to Maintain Weight Bearing Status Yes During Gait Assistive Devices Assistive Device Gait Belt Front Wheeled Walker Orthotic/Prosthetic Devices or Brace: No Gait Deviations General Gait Pattern Antalgic Decreased Stride Length Decreased Feet Clearance Factors Limiting Gait Function Factors Limiting Gait Function Decreased Activity Tolerance Decreased Strength Difficulty Following Directions Limited Range of Motion Pain Poor Balance Poor Safety Awareness M5 PT-IP Objective Assessments Start: 09/24/18 17:33 Freq: NEEDED Status: Active Protocol: Document 09/25/18 09:50 AB (Rec: 09/25/18 12:12 AB [id number]) Orientation Orientation/Cognition Level of Alertness Alert Orientation Name Age Birthday Place Situation Language Function Ability No Deficits Noted Safety Awareness Decreased Safety Awareness Gross Range of Motion Lower Extremity ROM Assessment Right Impaired Impairments R hip decreased ROM due to pain limiting movement Strength Lower Extremity Strength Assessment Right Impaired Knee 3-/5 Coordination Assessment Gross Coordination Gross Coordination WNL Sensation Assessment Sensation Gross Sensation WNL Muscle Tone Muscle Tone WNL Yes M6 PT-IP Treatment Start: 09/24/18 17:33 Freq: NEEDED Status: Active Protocol: Document 09/27/18 10:59 AB (Rec: 09/27/18 11:42 AB [id number]) Physical Therapy Treatment Education Education Provided Precautions Safety M7 PT-IP Assessment and Plan Start: 09/24/18 17:33 Freq: NEEDED Status: Active Protocol: Document 09/27/18 10:59 AB (Rec: 09/27/18 11:42 AB [id number]) PT Summary Assessment and Plan Potential Rehabilitation Potential Good Summary Impairments Pain ROM Strength Balance Cognition Bed Mobility Transfers Gait Activity Tolerance Progress Towards Goals Slow Progress due to Pain Assessment Summary pt progressing slowly with mobility but continues to require min to mod A with mobility. pt will benefit from SNF rehab to improve strength and independence. Goals Bed Mobility Goal Standby Assistance Transfer Goal Contact Guard Assistance Front Wheeled Walker Gait Goal Contact Guard Assistance Front Wheel Walker Gait Distance 100 Other Goals up/down 3 steps with bilateral rails CGA up/down 2 steps using FWW CGA Days to Meet Goals 5 Frequency of Treatment Frequency Of Treatment Twice a Day Treatment Plan Physical Therapy Treatment Plan Bed Mobility Training Transfer Training Gait Training Therapeutic Exercise Balance Retraining Post Op Education Discharge Planning Hot or Cold Pack Neuromuscular Re-ed Coordination Retraining Manual Therapy Other Recommendations and Next Treatment ambulation Focus Recommendations To Nursing Amount of Assist Needed 1 Person Assist Discharge Recommendations PT Discharge Recommendations SNF Rehab
[2018-09-27] MEDS: HYDROMORPHONE 2 MG TABLET PO (12:36)
--- NOTE | 2018-09-27 12:39 | PC.NURSE ---
Report called to [facility]. Pt describes pain at 8/10 but appears sleepy. Given 2mg dose of dilaudid at this time. Pt is ready to be transferred at 1330 today.
--- NOTE | 2018-09-27 13:57 | PC.NURSE ---
Pt taken by wheelchair with all her belongings and paperwork.
== END 2018-09-27 13:57 | DRG 470 ==
PROVIDERS: Admitting Provider Orthopaedic Surgery; Family Provider Specialist; PCP Specialist; Visit Provider Orthopaedic Surgery
PROC: 0SR90JZ Replacement of Right Hip Joint with Synthetic Substitute, Open Approach (ICD-10-PCS; CPT 27130; principal; 2018-09-24 14:30)
DX: M16.11 Unilateral primary osteoarthritis, right hip (principal); G47.33 Obstructive sleep apnea (adult) (pediatric); E78.5 Hyperlipidemia, unspecified; E11.9 Type 2 diabetes mellitus without complications; I35.0 Nonrheumatic aortic (valve) stenosis; F17.210 Nicotine dependence, cigarettes, uncomplicated; I48.91 Unspecified atrial fibrillation; Z79.01 Long term (current) use of anticoagulants; I25.10 Atherosclerotic heart disease of native coronary artery without angina pectoris; J44.9 Chronic obstructive pulmonary disease, unspecified
CPT/HCPCS: 36415; 72170; 82962; 85014; 85018; 94760; 97116; 97162; 97530; 99406; C1776; J0690; J1170; J1650; J2250; J2704; J3010

== ENCOUNTER → 2018-09-28 11:55 | Outpatient (REF) | payer MEDICARE, OTHER, SELFPAY ==
[2018-09-24 16:42] VITALS: BMI 28.5
[2018-09-28 12:06] LABS: INR 1.1 (0.9-1.3); Prothrombin Time 12.7 SECONDS (10.1-12.7)
== END ==
LOC: LAB 11:55
PROVIDERS: Family Provider Specialist; PCP Specialist; Visit Provider Hospitalist
DX: I48.91 Unspecified atrial fibrillation (principal)
CPT/HCPCS: 85610

== ENCOUNTER → 2018-10-02 | Outpatient (REF) | payer MEDICARE, OTHER, SELFPAY ==
[2018-09-24 16:42] VITALS: BMI 28.5
== END ==
LOC: LAB 14:33
PROVIDERS: Family Provider Specialist; PCP Specialist; Visit Provider Hospitalist
DX: I48.91 Unspecified atrial fibrillation (principal)